=== PATIENT | male | born 2005 | race Caucasian/White ===

== ENCOUNTER 2023-06-02 09:44 | Outpatient (CLI) | payer OTHER, SELFPAY ==
[2023-06-02 10:07] LABS: Hematocrit 48.6 % (42.0-52.0); Hemoglobin 16.6 g/dL (14.0-18.0); Mean Corpuscular HGB Conc 34.2 g/dl (32-36); Mean Corpuscular Hemoglobin 32.4 pg (26-34); Mean Corpuscular Volume 94.7 fl (80-100); Mean Platelet Volume 9.7 fl (7.4-10.4); Platelet Count Result 240 k/mm3 (150-375); Red Blood Count 5.13 M/mm3 (4.6-6.20); Red Cell Distribution Width 11.5 % (11.5-14.5); White Blood Count 6.2 K/mm3 (4.5-10.0)
== END 2023-06-02 09:45 | disposition home or self-care (01) ==
LOC: ANHLAB 09:46
PROVIDERS: PCP Surgery Plastic and Reconstructive Surgery; Visit Provider Nurse Practitioner
DX: K92.1 Melena (principal)
CPT/HCPCS: 36415; 85027

== ENCOUNTER 2023-06-22 01:24 | Day surgery (SDC) | payer OTHER, SELFPAY ==
[2023-06-14 09:18] VITALS: BMI 20.1
[2023-06-22 07:13] VITALS: BP 123/85; PULSE 60; RESP 18; TEMP 36.6; O2SAT 100
[2023-06-22] MEDS: LACTATED RINGERS 1,000 ML 150 ML IV CONT (07:20)
--- NOTE | 2023-06-22 07:50 | WPDHPUPDATE1 ---
History and Physical Update Update Date/Time: 06/22/23 07:50 History and Physical has been reviewed, including an updated exam of the patient. There are NO changes in the patient's condition. Risks, benefits, and alternatives have been discussed and questions answered. Patient agrees to proceed with procedure.
--- NOTE | 2023-06-22 07:52 | P.PNAN_ITS ---
Anes - Initial Pre Proc Eval Procedure: Operation Date: 06/22/23 08:30 Proposed Procedures p Esophagogastroduodenoscopy - Froy Fink MD Date/Time: 06/22/23 07:52 Surgeon: Froy Fink MD Pre Op Diagnosis: melena, abdominal pain, early satiety,N&V Patient Data Age: 18 Gender: M Height: 1.78 m Weight: 63.6 kg Last Vital Signs Temp 97.8 F 06/22/23 07:13 Pulse 60 06/22/23 07:13 Resp 18 06/22/23 07:13 BP 123/85 06/22/23 07:13 Pulse Ox 100 06/22/23 07:13 O2 Del Method Room Air 06/22/23 07:13 Allergies Allergy/AdvReac Type Severity Reaction Status Date / Time No Known Allergies Allergy Verified 06/22/23 07:11 Home Medications Medication Instructions Recorded Confirmed Type omeprazole 20 mg capsule,delayed 20 mg PO BID #60 caps 06/02/23 06/14/23 Rx release ondansetron 4 mg disintegrating 4 mg PO Q6H PRN Nausea And Vomiting 06/02/23 06/14/23 History tablet sucralfate 1 gram tablet 1 g PO TIDWMEAL 06/02/23 06/14/23 History cetirizine 10 mg tablet (Zyrtec) 10 mg PO DAILY 06/14/23 06/14/23 History Patient hx anesthesia problems: none Family hx anesthesia problems: none Results Review: All pre-operative results and documents have been reviewed as part of the pre- operative evaluation. [facility] Past Medical History Medical History (Updated 06/02/23 @ 10:02 by Xochilt Kamara, MARINA) Abdominal pain Early satiety Globus syndrome Melena Nausea and vomiting Surgical History Surgical History (Updated 06/02/23 @ 08:14 by Kenisha Ryan MA) H/O tympanostomy Social History Social History (Updated 06/02/23 @ 08:15 by Kenisha Ryan MA) Smoking status: Never smoker Alcohol intake: current Substance use: never Substance use type: does not use Living arrangements: with family Spiritual care concerns: No Anes - Eval Final PreProcedure Day of Procedure 06/22/23 07:52 Patient weight: normal Heart: regular rate and rhythm Lungs: clear to auscultation Airway: Mallampati scale class II Neurological: alert and oriented Last oral intake: >/= 8 hours ASA classification: II Emergent: no Anesthetic plan: proceed Anesthesia type and monitoring: general GIVS and standard monitoring Results Review: All pre-operative results and documents have been reviewed as part of the pre- operative evaluation. Informed Consent: The patient's anesthetic plan and its attendant risks and benefits were discussed with the patient/family/POA. Questions were solicited and answers provided to the satisfaction of the patient/family/POA.
[2023-06-22 08:03] VITALS: BP 94/57; PULSE 65; RESP 14; O2SAT 98
[2023-06-22 08:13] VITALS: BP 105/78; PULSE 62; RESP 18; O2SAT 100
[2023-06-22 08:23] VITALS: BP 123/87; PULSE 63; RESP 15; O2SAT 100
== END 2023-06-22 08:28 | disposition home or self-care (01) ==
PROVIDERS: PCP Pediatrics; Visit Provider Internal Medicine Gastroenterology
PROC: 0DJ08ZZ Inspection of Upper Intestinal Tract, Via Natural or Artificial Opening Endoscopic (ICD-10-PCS; CPT 43235; principal; 2023-06-22 08:30)
DX: R10.13 Epigastric pain (principal); R11.0 Nausea
CPT/HCPCS: 43239; 88305; J2704; J7120